=== PATIENT | female | born 1985 | race Caucasian/White ===

== ENCOUNTER 2023-04-11 16:25 | Emergency (ER) | payer MEDICAID ==
[~2023-04-11] VITALS: Ht 154.9 cm; Wt 100.0 kg
[2023-04-11 16:38] VITALS: O2SAT 97
[2023-04-11] MEDS ORDERED: ONDANSETRON HCL 4MG/2ML INJ IV STA (16:43)
[2023-04-11] MEDS ORDERED: MORPHINE SULFATE 4 MG/ML CPJ (NOT FOR IM USE) IV STA (16:43)
[2023-04-11 17:40] LABS: BASOPHILS % 0.5 % (0.0-2.0); EOSINOPHILS % 2.7 % (0.0-5.0); HEMATOCRIT. 36.8 % (36.0-48.0); HEMOGLOBIN. 11.8 g/dL (12.0-16.0); LYMPHOCYTES % 27.4 % (20.0-50.0); MEAN CORPUSCULAR HEMOGLOBIN 28.4 pg (28.0-32.0); MEAN CORPUSCULAR HGB CONC 32.2 g/dL (31.0-37.0); MEAN CORPUSCULAR VOLUME 88.3 fL (81.0-99.0); MEAN PLATELET VOLUME 8.6 fl (7.4-10.4); MONOCYTES % 7.7 % (2.0-8.0); NEUTROPHILS % 61.7 % (40.0-76.0); PLATELET 361 x1000/uL (130-400); RED BLOOD CELL COUNT 4.17 mill/uL (4.2-5.4); RED CELL DISTRIBUTION WIDTH 12.9 % (11.6-14.6); WHITE BLOOD COUNT 12.3 x1000/uL (4.5-11.0)
[2023-04-11 17:44] LABS: PROTHROMBIN TIME 10.4 sec (9.6-11.0)
[2023-04-11 17:49] LABS: HCG SCREEN NEGATIVE
[2023-04-11 17:51] LABS: ALANINE AMINOTRANSFERASE 28 IU/L (10-49); ALBUMIN 3.6 g/dL (3.2-4.8); ASPARTATE AMINOTRANSFERASE 20 IU/L (<34); BILIRUBIN TOTAL 0.3 mg/dL (0.1-1.0); CALCIUM 8.6 mg/dL (8.7-10.4); CARBON DIOXIDE 25 mEq/L (21-32); CHLORIDE 105 mEq/L (98-107); CREATININE 0.6 mg/dL (0.6-1.0); GLUCOSE 103 mg/dL (70-105); POTASSIUM 3.2 mEq/L (3.5-5.1); SODIUM 138 mEq/L (136-145); UREA NITROGEN BLOOD 12 mg/dL (9-23)
[2023-04-11] MEDS ORDERED: ONDA4TAB11 PO (21:58)
[2023-04-11] MEDS ORDERED: DICY20TA2 MT (21:58)
[2023-04-11 22:12] VITALS: BP 145/76; PULSE 92; RESP 20; TEMP 97.6
== END 2023-04-11 22:17 | disposition home or self-care (01) ==
LOC: ER 16:25
DX: R10.84 Generalized abdominal pain (principal); I10 Essential (primary) hypertension
CPT/HCPCS: 80053; 84703; 83690; 85025; 85610; 36415; 74177; 96374; 96375; 99285; J2405; J2270; Z7610 ×3